=== PATIENT | male | born 1955 | race Caucasian/White ===

== ENCOUNTER 2017-04-23 10:20 | Emergency (ER) | payer BC ==
[2017-04-23] MEDS ORDERED: 0.9 % SODIUM CHLORIDE 1,000 ML BAG IV ONE (10:56)
[2017-04-23] MEDS ORDERED: ACETAMINOPHEN 1,000 MG/100 ML BTL IVPB ONE (10:59)
[2017-04-23] MEDS ORDERED: PROMETHAZINE HCL 12.5 MG in 0.9 % SODIUM CHLORIDE 100ML 100 ML IVPB ONE (10:59)
[2017-04-23 11:37] LABS: HEMOGLOBIN 17.2 gm/dl (14.0-18.0); MEAN CELL VOLUME 84.6 fl (81-97); MEAN CORPUSCULAR HEMOGLOBIN 29.1 pg (27-33); MEAN CORPUSCULAR HGB CONC 34.4 g/dl (32-36); MEAN PLATELET VOLUME 10.5 fl (7.4-10.4); PLATELET COUNT 204 K/uL (130-400); RED BLOOD COUNT 5.91 M/uL (4.40-5.70); RED CELL DISTRIBUTION WIDTH 14.2 % (11.5-14.5)
[2017-04-23 11:37] LABS: URINE APPEARANCE CLEAR; URINE BILIRUBIN MODERATE (NEGATIVE); URINE BLOOD MODERATE (NEGATIVE); URINE COLOR YELLOW; URINE GLUCOSE (UA) NEGATIVE (NEGATIVE); URINE KETONE 40 mg/dL (NEGATIVE); URINE LEUKOCYTE ESTERASE NEGATIVE (NEGATIVE); URINE NITRITE NEGATIVE (NEGATIVE)
[2017-04-23 11:48] LABS: BLOOD UREA NITROGEN 17 mg/dL (8-23); EST GLOMERULAR FILTRATION RATE > 60 mL/min
[2017-04-23 11:50] LABS: GLUCOSE,RANDOM 124 mg/dL (74-109)
[2017-04-23 11:53] LABS: INFLUENZA A NEGATIVE (NEGATIVE); INFLUENZA B NEGATIVE (NEGATIVE)
[2017-04-23 11:54] LABS: LACTIC ACID 2.5 mmol/L (0.5-2.2)
[2017-04-23 11:58] LABS: URINE BACTERIA FEW; URINE EPITHELIAL CELLS 0 - 2 (FEW); URINE MUCUS LIGHT; URINE WBC 0 - 2 (0-2/hpf)
[2017-04-23] MEDS ORDERED: OSTELTAMIVIR 75 MG CAP PO ONE (17:14)
[2017-04-23] MEDS ORDERED: LEVOFLOXACIN/D5W 750 MG/150 ML BAG IVPB ONE (17:18)
--- NOTE | 2017-04-23 17:19 | Emergency Department Record ---
History of Present Illness - General Chief complaint: Vomiting Stated complaint: VOMITING Time Seen by Provider: 04/23/17 10:52 Source: Patient Mode of Arrival: Ambulatory Limitations: No limitations - History of Present Illness Initial comments: pt had uti symptoms on saturday and was told that he had a bad kidney infection and was started on levaquin. he has been having intractable vomiting, fevers, rigors and body aches. MD complaint: Abdominal pain, Nausea, Vomiting Onset/Timin -: Days(s) Description of Vomiting: Bilious, Watery Radiation: None Severity scale (1-10): 4 Quality: Aching Consistency: Constant Improves with: None Worsens with: Vomiting Context: Recent anitbiotic use Associated Symptoms: Nausea/vomiting - Related Data Home Medications Medication Instructions Recorded Confirmed Last Taken Celecoxib [Celebrex] 200 mg PO DAILY 04/23/17 04/23/17 Unknown Levofloxacin [Levaquin] 500 mg PO DAILY 04/23/17 04/23/17 Unknown Ondansetron [Zofran Odt] 8 mg PO Q6H 04/23/17 04/23/17 Unknown Previous Rx's Medication Instructions Recorded Oseltamivir Phosphate [Tamiflu] 75 mg PO BID #9 capsule 04/23/17 Promethazine HCl [Phenergan] 25 mg PO Q8HR #14 tablet 04/23/17 Allergies Allergy/AdvReac Type Severity Reaction Status Date / Time ciprofloxacin [From Cipro] AdvReac Severe BEHAVIORAL Verified 08/31/15 15:21 CHANGES ciprofloxacin HCl AdvReac Severe BEHAVIORAL Verified 08/31/15 15:21 [From Cipro] CHANGES Travel Screening - Travel/Exposure Within Last 30 Days Have you traveled within the last 30 days?: No Review of Systems Reviewed: No additional complaints except as noted below Constitutional: Reports: As per HPI. Denies: Chills, Fever, Malaise, Night sweats, Weakness, Weight change Eyes: Reports: As per HPI. Denies: Eye discharge, Eye pain, Photophobia, Vision change ENT: Reports: As per HPI. Denies: Congestion, Dental pain, Ear pain, Epistaxis , Hearing loss, Throat pain Respiratory: Reports: As per HPI. Denies: Cough, Dyspnea, Hemoptysis, Stridor, Wheezes Cardiovascular: Reports: As per HPI. Denies: Arrhythmia, Chest pain, Dyspnea on exertion, Edema, Murmurs, Orthopnea, Palpitations, Paroxysmal nocturnal dyspnea, Rheumatic Fever, Syncope Endocrine: Reports: As per HPI. Denies: Fatigue, Heat or cold intolerance, Polydipsia, Polyuria Gastrointestinal: Reports: As per HPI. Denies: Abdominal pain, Constipation, Diarrhea, Hematemesis, Hematochezia, Melena, Nausea, Vomiting Genitourinary: Reports: As per HPI. Denies: Dysuria, Frequency, Hematuria, Incontinence, Retention, Testicular pain, Testicular mass, Urgency Musculoskeletal: Reports: As per HPI. Denies: Arthralgia, Back pain, Gout, Joint swelling, Myalgia, Neck pain Skin: Reports: As per HPI. Denies: Bruising, Change in color, Change in hair/ nails, Lesions, Pruritus, Rash Neurological: Reports: As per HPI. Denies: Abnormal gait, Confusion, Headache, Numbness, Paresthesias, Seizure, Tingling, Tremors, Vertigo, Weakness Psychiatric: Reports: As per HPI. Denies: Anxiety, Auditory hallucinations, Depression, Homicidal thoughts, Suicidal thoughts, Visual hallucinations Hematological/Lymphatic: Reports: As per HPI. Denies: Anemia, Blood Clots, Easy bleeding, Easy bruising, Swollen glands Past Medical History - SOCIAL HISTORY Smoking Status: Former smoker Alcohol Use: None Drug Use: None - RESPIRATORY Hx Respiratory Disorders: No - CARDIOVASCULAR Hx Cardio Disorders: Yes Hx Hypertension: Yes Hx Irregular Heartbeat: Yes (afib) - NEURO Hx Neuro Disorders: Yes Hx Headaches: Yes - GI Hx GI Disorders: No - Hx Genitourinary Disorders: Yes Hx UTI: Yes - ENDOCRINE Hx Endocrine Disorders: No - MUSCULOSKELETAL Hx Musculoskeletal Disorders: No - PSYCH Hx Psych Problems: No - HEMATOLOGY/ONCOLOGY Hx Hematology/Oncology Disorders: No Family Medical History Any Significant Family History?: Yes Hx Heart Disease: Father, Mother Hx Stroke: Father Physical Exam - General General Appearance: Alert, Oriented x3, Cooperative, Moderate distress - Head Head exam: Normal inspection - Eye Eye exam: Normal appearance, PERRL, EOMI Pupils: Normal accommodation - ENT ENT exam: Normal exam, Mucous membranes dry, Normal external ear exam, Normal orophraynx Ear exam: Normal external inspection. negative: External canal tenderness Nasal Exam: Normal inspection. negative: Discharge, Sinus tenderness Mouth exam: Normal external inspection, Tongue normal Teeth exam: Normal inspection. negative: Dental caries Throat exam: Normal inspection. negative: Tonsillar erythema, Tonsillar exudate - Neck Neck exam: Normal inspection, Full ROM. negative: Tenderness - Respiratory Respiratory exam: Normal lung sounds bilaterally. negative: Respiratory distress - Cardiovascular Cardiovascular Exam: Regular rate, Normal rhythm, Normal heart sounds - GI/Abdominal GI/Abdominal exam: Soft, Normal bowel sounds, Tenderness - Rectal Rectal exam: Deferred - exam: Deferred - Extremities Extremities exam: Normal inspection, Full ROM, Normal capillary refill. negative: Tenderness - Back Back exam: Reports: Normal inspection, Full ROM. Denies: Muscle spasm, Rash noted, Tenderness - Neurological Neurological exam: Alert, Normal gait, Oriented X3, Reflexes normal - Psychiatric Psychiatric exam: Normal affect, Normal mood - Skin Skin exam: Dry, Intact, Normal color, Warm Course Vital Signs 04/23/17 04/23/17 04/23/17 10:44 13:05 14:32 Temperature 98.3 F 99.6 F Pulse Rate 99 H Pulse Rate [ 93 H 97 H Pulse Ox Probe] Respiratory 97 H 16 20 Rate Blood Pressure 159/95 Blood Pressure 168/99 173/102 [Left Arm] Pulse Ox 20 L 97 96 - Reevaluation(s) Reevaluation #1: 04/23/17 17:20 pt feels better Medical Decision Making - Lab Data Result diagrams: 04/23/17 11:20 04/23/17 11:20 Lab Results 04/23/17 04/23/17 04/23/17 Range/Units 11:20 11:20 11:20 WBC 12.0 (4.2-12.2) K/uL RBC 5.91 H (4.40-5.70) M/uL Hgb 17.2 (14.0-18.0) gm/dl Hct 50.0 (42.0-52.0) % MCV 84.6 (81-97) fl MCH 29.1 (27-33) pg MCHC 34.4 (32-36) g/dl RDW 14.2 (11.5-14.5) % Plt Count 204 (130-400) K/uL MPV 10.5 H (7.4-10.4) fl Neutrophils % 78.0 (47-80) % Eosinophils % Not Reportable Basophils % Not Reportable Lymphocytes 11.0 L (16-45) % Monocytes 10.0 H (0-9) % ESR 53 H (0-20) mm/hr Eosinophil Count 1.0 (0-6) % Sodium 138 (136-145) mmol/L Potassium 3.9 (3.4-4.5) mmol/L Chloride 97 L (98-107) mmol/L Carbon Dioxide 23.0 (22-29) mmol/L Anion Gap 18.0 H (7-16) BUN 17 (8-23) mg/dL Creatinine 1.0 (0.7-1.2) mg/dL Estimated GFR > 60 mL/min Random Glucose 124 H (74-109) mg/dL Lactic Acid 2.5 H (0.5-2.2) mmol/L Calcium 9.1 (8.8-10.2) mg/dL Urine Color Urine Appearance Urine pH (5.0-8.0) Ur Specific [place] (1.002-1.030) Urine Protein (NEGATIVE) Urine Glucose (UA) (NEGATIVE) Urine Ketones (NEGATIVE) Urine Blood (NEGATIVE) Urine Nitrite (NEGATIVE) Urine Bilirubin (NEGATIVE) Urine Urobilinogen (0.20 - 1.00) E.U./dL Ur Leukocyte Esterase (NEGATIVE) Urine RBC (NONE SEEN) Urine WBC (0-2/hpf) Ur Epithelial Cells (FEW) Urine Bacteria Urine Mucus Influenza Type A Ag (NEGATIVE) Influenza Type B Ag (NEGATIVE) 04/23/17 04/23/17 Range/Units 11:30 11:30 WBC (4.2-12.2) K/uL RBC (4.40-5.70) M/uL Hgb (14.0-18.0) gm/dl Hct (42.0-52.0) % MCV (81-97) fl MCH (27-33) pg MCHC (32-36) g/dl RDW (11.5-14.5) % Plt Count (130-400) K/uL MPV (7.4-10.4) fl Neutrophils % (47-80) % Eosinophils % Basophils % Lymphocytes (16-45) % Monocytes (0-9) % ESR (0-20) mm/hr Eosinophil Count (0-6) % Sodium (136-145) mmol/L Potassium (3.4-4.5) mmol/L Chloride (98-107) mmol/L Carbon Dioxide (22-29) mmol/L Anion Gap (7-16) BUN (8-23) mg/dL Creatinine (0.7-1.2) mg/dL Estimated GFR mL/min Random Glucose (74-109) mg/dL Lactic Acid (0.5-2.2) mmol/L Calcium (8.8-10.2) mg/dL Urine Color Yellow Urine Appearance Clear Urine pH 6.0 (5.0-8.0) Ur Specific [place] >= 1.030 (1.002-1.030) Urine Protein 100 mg/dl H (NEGATIVE) Urine Glucose (UA) Negative (NEGATIVE) Urine Ketones 40 mg/dl H (NEGATIVE) Urine Blood Moderate (NEGATIVE) Urine Nitrite Negative (NEGATIVE) Urine Bilirubin Moderate H (NEGATIVE) Urine Urobilinogen 1.0 (0.20 - 1.00) E.U./dL Ur Leukocyte Esterase Negative (NEGATIVE) Urine RBC 3 - 6 (NONE SEEN) Urine WBC 0 - 2 (0-2/hpf) Ur Epithelial Cells 0 - 2 (FEW) Urine Bacteria Few Urine Mucus Light Influenza Type A Ag Negative (NEGATIVE) Influenza Type B Ag Negative (NEGATIVE) Disposition Disposition: Discharge Clinical Impression: Pyelonephritis, Flu Disposition: Home, Self-Care Condition: (1) Good Instructions: Acute Nausea and Vomiting (ED), Urinary Tract Infection in Men ( ED), Influenza (ED) Prescriptions: Promethazine HCl [Phenergan] 25 mg PO Q8HR #14 tablet Oseltamivir Phosphate [Tamiflu] 75 mg PO BID #9 capsule Quality - Blood Pressure Screening Does Patient Have Any of the Following: No Blood Pressure Classification: Hypertensive Reading Systolic Measurement: 159 Diastolic Measurement: 95
--- NOTE | 2017-04-24 07:04 | RADIOLOGY REPORT ---
DATE: 04/23/2017 at 11:37 a.m. EXAM: TWO-VIEW, CHEST. HISTORY: Kidney infection for five days. Fever and malaise. TECHNIQUE: PA and lateral views. COMPARISON: Two-view, chest dated 08/31/2015. FINDINGS: Heart size is at about the upper limits of normal. Torsion of the aorta. No acute infiltrate identified. Prominent spurring in the spine. IMPRESSION: TORSION OF THE AORTA. PROMINENT SPURRING IN THE SPINE. NO ACUTE INFILTRATE IDENTIFIED. JOB NUMBER: [id number] MTDD
--- NOTE | 2017-04-24 13:13 | CT SCAN REPORT ---
EXAM: EMERGENCY CT OF THE ABDOMEN AND PELVIS WITH CONTRAST HISTORY: KIDNEY INFECTION FOR FIVE DAYS, FEVER AND MALAISE. CHOLECYSTECTOMY. TECHNIQUE: Axial CT scan of the abdomen and pelvis was performed following both oral and IV contrast administration utilizing a dose of 100 ml of Omnipaque 300 as the IV contrast. Comparison: None. FINDINGS: Surgical clips in the gallbladder fossa consistent with prior cholecystectomy. Mild diffuse fatty infiltration of the liver with no focal hepatic mass evident. No definite splenic, adrenal, or pancreatic mass identified. The right kidney appears negative. There is some mild heterogeneity and enhancement of the left kidney particularly in the upper pole medially which may represent changes of acute pyelonephritis. The prostate appears enlarged measuring about 6.5 cm in transverse x 5.5 cm in AP diameter. Correlation with physical exam and serum PSA is suggested. Oral contrast given has passed throughout the small bowel into the colon with no small bowel obstruction evident. The cecum is somewhat inverted. The appendix is not well demonstrated, but no apparent appendicitis is evident. Small periumbilical anterior abdominal wall hernia containing adipose tissue, but no bowel. Mild dependent atelectasis in both lung bases posteriorly. No free intraperitoneal air or free intraperitoneal fluid evident. Some facet joint arthropathy in the lumbar spine. Prominent spurring in the lower thoracic spine. IMPRESSION: 1. HETEROGENEOUS ENHANCEMENT OF THE UPPER POLE OF THE LEFT KIDNEY IN PARTICULAR , NONSPECIFIC, BUT SUSPICIOUS FOR CHANGES OF ACUTE PYELONEPHRITIS. 2. POSTOP CHOLECYSTECTOMY. ENLARGED PROSTATE. 3. SMALL PERIUMBILICAL ANTERIOR ABDOMINAL WALL HERNIA. 4. MILD DIFFUSE FATTY INFILTRATION OF THE LIVER. 5. DEGENERATIVE CHANGE IN THE SPINE. JOB NUMBER: [id number] MTDD
== END 2017-04-23 18:51 | disposition home or self-care (01) ==
LOC: ER 10:20
DX: N10 Acute pyelonephritis (principal); J10.2 Influenza due to other identified influenza virus with gastrointestinal manifestations; R11.2 Nausea with vomiting, unspecified; R50.81 Fever presenting with conditions classified elsewhere; I10 Essential (primary) hypertension; Z87.891 Personal history of nicotine dependence
CPT/HCPCS: 71020; 74177; 80048; 81001; 83605; 85027; 85651; 87400; 96374; 96375; 99284; J1956; J2550

== ENCOUNTER 2017-10-17 08:20 | Day surgery (SDC) | payer BC ==
[~2017-10-17 08:20] MED LIST: ACETAMINOPHEN 1,000 MG/100 ML BTL IV ONE
[2017-10-17] MEDS ORDERED: BUPIVACAINE 0.25% W/EPI MPF 30ML VIAL IVP ONE (08:21)
[2017-10-17] MEDS ORDERED: FENTANYL PF 100MCG/2ML VIAL IV ONE (08:21)
[2017-10-17] MEDS ORDERED: KETOROLAC 30 MG/ML VIAL IVP ONE (08:21)
[2017-10-17] MEDS ORDERED: LIDOCAINE 2% MDV (20MG/ML) 20ML VIAL IV ONE (08:21)
[2017-10-17] MEDS ORDERED: HYDROCODONE/APAP 5/325MG TABLET PO ONE (08:21)
[2017-10-17] MEDS ORDERED: MORPHINE SULFATE 4MG/ML PREFILLED SYRINGE IVP ONE (08:21)
[2017-10-17] MEDS ORDERED: PROPOFOL 10 MG/ML VIAL IV ONE (08:21)
[2017-10-17] MEDS ORDERED: ONDANSETRON HCL IV 4 MG/2 ML VIAL IVP ONE (08:21)
[2017-10-17] MEDS ORDERED: MIDAZOLAM HCL 2MG/2ML VIAL IV ONE (08:21)
[2017-10-17] MEDS ORDERED: SEVOFLURANE 250 ML INH ONE (08:21)
[2017-10-17 08:38] LABS: BASO % 0.6 % (0-6); EOS % 4.7 % (0-6); GRAN % 55.8 % (47-80); HEMOGLOBIN 16.2 gm/dl (14.0-18.0); LYMPH % 29.6 % (16-45); MEAN CELL VOLUME 87.4 fl (81-97); MEAN CORPUSCULAR HEMOGLOBIN 30.1 pg (27-33); MEAN CORPUSCULAR HGB CONC 34.5 g/dl (32-36); MEAN PLATELET VOLUME 10.1 fl (7.4-10.4); MONO % 9.3 % (0-9); PLATELET COUNT 243 K/uL (130-400); RED BLOOD COUNT 5.38 M/uL (4.40-5.70); RED CELL DISTRIBUTION WIDTH 13.4 % (11.5-14.5); WHITE BLOOD COUNT W/O DIFF 6.4 K/uL (4.2-12.2)
[2017-10-17 08:57] LABS: BLOOD UREA NITROGEN 13 mg/dL (8-23); CREATININE 0.9 mg/dL (0.7-1.2); EST GLOMERULAR FILTRATION RATE > 60 mL/min; GLUCOSE,RANDOM 107 mg/dL (74-109)
--- NOTE | 2017-10-18 15:30 | Operative Note ---
DATE OF SURGERY: 10/17/2017 PREOPERATIVE DIAGNOSIS: Chondromalacia of the left knee. POSTOPERATIVE DIAGNOSES: 1. Torn medial meniscus, left knee. 2. Chondromalacia medial femoral condyle and medial tibial plateau and patella, left knee. 3. Synovitis, left knee. OPERATIVE PROCEDURES: 1. Arthroscopic partial medial meniscectomy, left knee. 2. Arthroscopic partial synovectomy, left knee. 3. Arthroscopic chondroplasty, medial femoral condyle, medial tibial plateau, and patella of left knee. DESCRIPTION: This 62-year-old male was taken to the operating room and placed in the supine position on the operating room table. General anesthesia was induced and the left lower extremity was elevated. It was exsanguinated and the tourniquet inflated to 300 mm Hg. Arthroscopic knee-gonzalez applied. Left knee prepped with Hibiclens and draped in the usual sterile fashion. An inferolateral portal was established for the 4 mm arthroscope. Initial evaluation of the joint demonstrated normal appearance of the suprapatellar pouch, but grade 3 chondromalacia of the patella was noted with deep cracks and fissures in the median ridge and extending down to both the medial and lateral facets. Chondroplasty was performed through an inferior medial portal. Stability to the articular cartilage was then restored. The trochlea appeared to be essentially normal, with no cartilage defects. The medial and lateral gutters were examined and found to be normal. The medial compartment was entered, and a complex tear of the medial meniscus was present completely missed by MRI. This tear extended from the posterior attachment all the way around to about the 10 o'clock position with horizontal cleavage components. We resected back to the apex of the tear, smoothed and tapered in each direction to restore stability to the medial meniscus. The articular cartilage of the medial femoral condyle demonstrated grade 3 changes with grade 2 changes noted on the medial tibial plateau. Chondroplasty was performed to restore stability to the articular cartilage there. The intercondylar notch was examined and found to be normal. The lateral compartment was entered, and cartilaginous loose bodies were present in the lateral compartment, but we did not demonstrate any articular cartilage defects in the lateral compartment, and the lateral meniscus appeared to be normal. The joint was copiously irrigated with lactated Ringer's solution, suctioned, and the instruments were removed. The portals infiltrated with 0.25% Marcaine with epinephrine. Sterile dressings applied. Tourniquet and knee-hold released, and the patient was taken to the recovery room in satisfactory condition. GROSS PATHOLOGY: Patient demonstrated a tear of the posterior horn of the medial meniscus with grade 3 chondromalacia being noted in the medial femoral condyle and patella, and grade 2 in the medial tibial plateau. Cartilaginous loose bodies were present, and the patient had synovitis in the anterior medial and the suprapatellar pouch, and partial synovectomy was performed in both of these areas as well. CC: Shane GALICIA
== END 2017-10-17 10:56 | disposition home or self-care (01) ==
LOC: SUR 08:20
PROVIDERS: ATTEND Orthopaedic Surgery
DX: S83.232A Complex tear of medial meniscus, current injury, left knee, initial encounter (principal); M94.262 Chondromalacia, left knee; M65.9 Synovitis and tenosynovitis, unspecified; I10 Essential (primary) hypertension
CPT/HCPCS: 85025; 80048; 29881; 01400; J1885; J2405; J3010; J2274